=== PATIENT | female | born 1990 | race Caucasian/White ===

== ENCOUNTER 2018-09-10 17:29 | Emergency (ER) | payer BC ==
[~2018-09-10] VITALS: Ht 170.2 cm; Wt 73.6 kg
[2018-09-10 17:40] VITALS: TEMP 98.4
[2018-09-10 18:36] LABS: BASO % 0.5 % (0.0-2.0); EOS % 0.2 % (0-4.0); GRAN # 4.7 (1.4-6.5); GRAN % 55.3 % (42.2-75.2); HEMATOCRIT 43.1 % (37.0-47.0); LYMPH # 2.9 (1.2-3.4); LYMPH % 33.6 % (20.0-51.0); MEAN CELL VOLUME 91 fl (80.0-100.0); MEAN CORPUSCULAR HEMOGLOBIN 32 pg (27.0-31.0); MEAN CORPUSCULAR HGB CONC 35 g/dl (33.0-37.0); MEAN PLATELET VOLUME 9.4 fl (7.4-10.4); MONO # 0.9 (0.1-0.6); PLATELET COUNT 313 K/mm3 (130-400); RED BLOOD COUNT 4.72 M/mm3 (4.10-5.30); REDCELL DISTRIBUTION WIDTH-CV 11.9 % (11.5-14.5)
[2018-09-10 18:57] LABS: ALANINE AMINOTRANSFERASE 24 U/L (9-52); ALBUMIN 4.5 gm/dL (3.5-5.0); ALKALINE PHOSPHATASE 76 U/L (50-136); ANION GAP 11 mmol/L (7-16); AST,SGOT 27 U/L (15-37); BILIRUBIN,TOTAL 0.6 mg/dL (0.0-1.0); BLOOD UREA NITROGEN 12 mg/dL (7-17); C-REACTIVE PROTEIN < 0.5 mg/dL (0.0-0.9); CALCIUM 9.4 mg/dL (8.4-10.2); CARBON DIOXIDE 25 mmol/L (22-30); CHLORIDE 100 mmol/L (98-107); CREATININE, serum 0.71 mg/dL (0.52-1.25); GLUCOSE 81 mg/dL (74-106); LIPASE 47 U/L (23-300); POTASSIUM 3.4 mmol/L (3.4-5.0); SODIUM 137 mmol/L (137-145); TOTAL PROTEIN 7.8 gm/dL (6.4-8.2)
[2018-09-10 19:53] LABS: COLLECTION METHOD CLEAN CATCH
[2018-09-10 20:01] LABS: MUCOUS Present /lpf; PH 5 (5-8); URINE APPEARANCE Hazy; URINE BACTERIA Rare /hpf; URINE BILIRUBIN Negative (NEGATIVE); URINE BLOOD Negative (NEGATIVE); URINE COLOR Yellow; URINE GLUCOSE Negative (NEGATIVE); URINE KETONE 1+ (NEGATIVE); URINE LEUKOCYTE ESTERASE Negative (NEGATIVE); URINE NITRATE Negative (NEGATIVE); URINE PROTEIN(semi-quant) Negative (NEGATIVE); URINE RBC 0-2 /hpf; URINE UROBILINOGEN Negative (NEGATIVE)
[2018-09-10 20:50] VITALS: BP 122/72; PULSE 75
== END 2018-09-10 20:53 | disposition home or self-care (01) ==
LOC: COL.ER 17:29
PROVIDERS: Nurse Practitioner
DX: R19.7 Diarrhea, unspecified (principal); R11.2 Nausea with vomiting, unspecified; R10.10 Upper abdominal pain, unspecified
CPT/HCPCS: J1885; J2405; J7030

== ENCOUNTER → 2020-05-17 | Outpatient (CLI) | payer BC | LOC: ZCOL.LAB 17:31 | DX: Z20.828 Contact with and (suspected) exposure to other viral communicable diseases (principal) ==

== ENCOUNTER 2021-04-22 18:45 | Emergency (ER) | payer BC ==
[~2021-04-22] VITALS: Ht 170.2 cm; Wt 81.8 kg
[2021-04-22 19:08] VITALS: TEMP 98.5
[2021-04-22 19:36] LABS: BASO % 0.7 % (0.0-2.0); EOS % 0.2 % (0-4.0); GRAN # 2.3 (1.4-6.5); GRAN % 39.8 % (42.2-75.2); HEMATOCRIT 42.4 % (37.0-47.0); HEMOGLOBIN 14.5 g/dl (12.5-16.0); LYMPH # 2.3 (1.2-3.4); LYMPH % 39.4 % (20.0-51.0); MEAN CELL VOLUME 92 fl (80.0-100.0); MEAN CORPUSCULAR HEMOGLOBIN 31 pg (27.0-31.0); MEAN CORPUSCULAR HGB CONC 34 g/dl (33.0-37.0); MEAN PLATELET VOLUME 10.9 fl (7.4-10.4); MONO # 1.1 (0.1-0.6); MONO % 19.7 % (1.7-9.3); PLATELET COUNT 292 K/mm3 (130-400); RED BLOOD COUNT 4.63 M/mm3 (4.10-5.30)
[2021-04-22 20:04] LABS: ALANINE AMINOTRANSFERASE 18 U/L (4-34); ALBUMIN 4.3 gm/dL (3.5-5.0); ALKALINE PHOSPHATASE 83 U/L (50-136); ANION GAP 8 mmol/L (7-16); AST,SGOT 25 U/L (15-37); BILIRUBIN,TOTAL 0.3 mg/dL (0.0-1.0); BLOOD UREA NITROGEN 10 mg/dL (7-17); CALCIUM 8.9 mg/dL (8.4-10.2); CARBON DIOXIDE 23 mmol/L (22-30); CHLORIDE 107 mmol/L (98-107); CREATININE, serum 0.66 (0.52-1.25); GLUCOSE 114 mg/dL (74-106); POTASSIUM 4.2 mmol/L (3.4-5.0); SODIUM 138 mmol/L (137-145); TOTAL PROTEIN 7.3 gm/dL (6.4-8.2)
[2021-04-22 20:20] LABS: TROPONIN-I < 0.012 ng/mL (0.000-0.035)
[2021-04-23] VITALS: BP 128/78; PULSE 82
== END 2021-04-23 | disposition home or self-care (01) ==
LOC: COL.ER 18:45
PROVIDERS: Emergency Medicine
DX: U07.1 COVID-19 (principal); T50.905A Adverse effect of unspecified drugs, medicaments and biological substances, initial encounter
CPT/HCPCS: J1200; J1885; J2930; J7030; J7512; Q0244